=== PATIENT | female | born 1990 | race African-American/Black ===

== ENCOUNTER 2017-04-17 10:46 | Emergency (ER) | payer MEDICAID ==
[~2017-04-17] VITALS: Ht 162.6 cm; Wt 88.0 kg
[2017-04-17 11:03] VITALS: BP 119/73
== END 2017-04-17 19:45 | disposition left against medical advice (07) ==
LOC: ER 12:30
DX: R10.9 Unspecified abdominal pain (principal); Z53.21 Procedure and treatment not carried out due to patient leaving prior to being seen by health care provider